=== PATIENT | female | born 1945 | race African-American/Black ===

== ENCOUNTER 2016-11-16 08:09 | Inpatient (IN) ==
[2016-11-16] MEDS ORDERED: TYLENOL ONE (08:24)
[2016-11-16] MEDS ORDERED: LOPRESSOR IV ONE (08:31)
[2016-11-16] MEDS ORDERED: TYLENOL PO ONE (08:38)
--- NOTE | 2016-11-16 09:24 | Diag Imaging Result Doc PS360 ---
EXAM: CHEST-2 VIEWS - 11/16/2016 HISTORY: fever TECHNIQUE: Chest two views COMPARISON: 10/20/2016 and 02/16/2016 FINDINGS: Heart size is normal. Inspiration is mildly shallow. The lungs appear clear. There is no pleural effusion or pneumothorax identified. IMPRESSION: Mildly shallow inspiration. No other evidence of acute disease. Electronically signed by Mateo Mcmahan 11/16/2016 9:22 AM
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
[2016-11-16 09:40] LABS: BILIRUBIN URINE NEGATIVE (NEGATIVE); BLOOD URINE 4+ (NEGATIVE); CLARITY CLEAR (CLEAR); COLOR YELLOW; GLUCOSE URINE NEGATIVE (NEGATIVE); LEUKOCYTES URINE 1+ (NEGATIVE); NITRITE URINE NEGATIVE (NEGATIVE); SP GRAVITY URINE 1.015; UROBILINOGEN URINE NORMAL
[2016-11-16 09:48] LABS: CALCIUM 9.5 mg/dL (8.8-10.2); POTASSIUM 4.3 mmol/L (3.5-5.1); TOTAL BILIRUBIN 0.7 mg/dL (0.20-1.00); TOTAL PROTEIN 8.8 g/dL (6.3-8.3)
--- NOTE | 2016-11-16 09:49 | EKG Report ---
Test Performed on : 11/16/2016 09:15:45 AM Test Reason : weakness Blood Pressure : / mmHG Vent. Rate : 111 BPM Atrial Rate : 111 BPM P-R Int : 130 ms QRS Dur : 064 ms QT Int : 328 ms P-R-T Axes : 083 083 080 degrees QTc Int : 446 ms Sinus tachycardia. Right atrial enlargement Borderline ECG When compared with ECG of 20-OCT-2016 16:04, No significant change was found Unconfirmed Result
[2016-11-16 09:50] LABS: URINE CULTURE PL NEEDED? YES; URINE EPITHELIAL CELLS >10 /HPF (<10); URINE RBC TNTC /HPF (<10); URINE WBC TNTC /HPF (<10)
[2016-11-16 09:51] LABS: URINE SOURCE CATH
[2016-11-16 10:34] LABS: BASO% 0.1 % (0.0-0.8); HEMATOCRIT 39.4 % (37.0-47.0); HEMOGLOBIN 12.9 g/dL (12.0-16.0); IMM GRAN# 0.04 X1000 (0.0-0.04); IMM GRAN% 0.3 % (0.0-0.5); LYMPH# 0.76 X1000 (1.2-3.4); LYMPH% 5.3 % (20.5-51.1); MANUAL DIFF NEEDED? YES; MCHC 32.7 g/dL (33-37); MCV 82.6 FL (81-99); MONO# 0.97 X1000 (0.11-0.59); MONO% 6.8 % (1.7-9.3); MPV 12.2 FL (7.4-10.4); NEUT% 87.5 % (42.2-75.2); PLT 195 X1000 (130-400); RBC 4.77 XMIL (4.2-5.4)
[2016-11-16 11:05] LABS: CK INDEX 0.8 (0.0-2.5); CK-MB 4.18 ng/mL (0.0-5.0)
[2016-11-16 11:07] LABS: LYMPHS 4 % (21-51); MONO 6 % (1-9)
[2016-11-16 11:20] LABS: INR 1.09 (0.86-1.15); PROTIME 14.4 Seconds (12.1-15.5)
[2016-11-16] MEDS ORDERED: LEVAQUIN 500 MG/D5W 500 MG/100 ML IVPB IV ONE (11:46)
[2016-11-16 12:28] LABS: PTT PL 25.1 Seconds (22.6-43.9)
[2016-11-16] MEDS ORDERED: LIBRIUM PO PRN (15:16)
[2016-11-16] MEDS: NS 1,000 ML IV SCH (16:36)
[2016-11-16] MEDS: ATIVAN IV PRN (18:42)
[2016-11-16] MEDS: CATAPRES PO PRN (19:30)
[2016-11-16] MEDS: KEPPRA PO SCH (22:18)
[2016-11-17] MEDS: NS 1,000 ML IV SCH ×3 (00:20→18:17)
[2016-11-17] MEDS: COZAAR PO SCH ×2 (00:20→09:28)
[2016-11-17] MEDS: NORVASC PO SCH (09:29)
[2016-11-17] MEDS: KEPPRA PO SCH ×2 (09:29→20:53)
[2016-11-17] MEDS: TUMS EXTRA STRENGTH PO PRN (14:21)
[2016-11-18] MEDS: ATIVAN IV PRN (02:13)
[2016-11-18] MEDS: NS 1,000 ML IV SCH ×2 (03:37→09:51)
[2016-11-18 07:05] LABS: MANUAL DIFF NEEDED? NO
[2016-11-18 07:21] LABS: BASO% 0.1 % (0.0-0.8); EOS# 0.05 X1000 (0.0-0.7); EOS% 0.4 % (0.0-10.0); HEMATOCRIT 33.4 % (37.0-47.0); HEMOGLOBIN 10.9 g/dL (12.0-16.0); IMM GRAN# 0.04 X1000 (0.0-0.04); IMM GRAN% 0.4 % (0.0-0.5); LYMPH# 1.67 X1000 (1.2-3.4); LYMPH% 14.9 % (20.5-51.1); MCH 27.5 PG (27-31); MCHC 32.6 g/dL (33-37); MCV 84.3 FL (81-99); MONO# 0.99 X1000 (0.11-0.59); MONO% 8.8 % (1.7-9.3); MPV 11.9 FL (7.4-10.4); NEUT% 75.4 % (42.2-75.2); PLT 137 X1000 (130-400); RBC 3.96 XMIL (4.2-5.4)
[2016-11-18 07:31] LABS: ALBUMIN 3.4 g/dL (3.5-5.0); CALCIUM 8.6 mg/dL (8.8-10.2); POTASSIUM 3.4 mmol/L (3.5-5.1); TOTAL BILIRUBIN 0.3 mg/dL (0.20-1.00)
[2016-11-18] MEDS: NORVASC PO SCH (09:43)
[2016-11-18] MEDS: KEPPRA PO SCH ×2 (09:43→20:07)
[2016-11-18] MEDS: COZAAR PO SCH (09:43)
[2016-11-19] MEDS: NS 1,000 ML IV SCH ×2 (00:19→06:29)
[2016-11-19 06:09] LABS: MANUAL DIFF NEEDED? NO
[2016-11-19 06:15] LABS: BASO% 0.1 % (0.0-0.8); EOS% 0.9 % (0.0-10.0); HEMATOCRIT 30.7 % (37.0-47.0); HEMOGLOBIN 9.9 g/dL (12.0-16.0); IMM GRAN# 0.05 X1000 (0.0-0.04); IMM GRAN% 0.5 % (0.0-0.5); LYMPH# 2.61 X1000 (1.2-3.4); MCH 27.3 PG (27-31); MCHC 32.2 g/dL (33-37); MCV 84.6 FL (81-99); MONO# 1.12 X1000 (0.11-0.59); MONO% 10.3 % (1.7-9.3); MPV 11.7 FL (7.4-10.4); NEUT% 64.2 % (42.2-75.2); PLT 157 X1000 (130-400); RBC 3.63 XMIL (4.2-5.4)
[2016-11-19 06:45] LABS: CALCIUM 8.3 mg/dL (8.8-10.2); POTASSIUM 3.4 mmol/L (3.5-5.1); TOTAL BILIRUBIN 0.4 mg/dL (0.20-1.00); TOTAL PROTEIN 6.6 g/dL (6.3-8.3)
[2016-11-19] MEDS ORDERED: LEVAQUIN 500 MG/D5W 500 MG/100 ML IVPB IV SCH (11:30)
[2016-11-19] MEDS: COZAAR PO SCH (17:34)
[2016-11-19] MEDS: NORVASC PO SCH (17:35)
[2016-11-19] MEDS: KEPPRA PO SCH (17:35)
[2016-11-20] MEDS: NS 1,000 ML IV SCH ×4 (02:40→18:34)
[2016-11-20] MEDS: ABILIFY PO SCH ×2 (02:40→08:47)
[2016-11-20] MEDS: M.V.I.-12 10 ML, FOLIC ACID 1 MG, MAGNESIUM SULFATE 1 GM, THIAMINE 100 MG in NS 1,000 ML IV SCH ×2 (02:42→21:02)
[2016-11-20] MEDS: KEPPRA PO SCH ×3 (02:42→21:00)
[2016-11-20 05:58] LABS: MANUAL DIFF NEEDED? NO
[2016-11-20 06:03] LABS: BASO% 0.1 % (0.0-0.8); EOS# 0.09 X1000 (0.0-0.7); HEMATOCRIT 26.5 % (37.0-47.0); HEMOGLOBIN 8.6 g/dL (12.0-16.0); IMM GRAN# 0.04 X1000 (0.0-0.04); IMM GRAN% 0.4 % (0.0-0.5); LYMPH# 1.47 X1000 (1.2-3.4); LYMPH% 16.2 % (20.5-51.1); MCH 27.2 PG (27-31); MCHC 32.5 g/dL (33-37); MCV 83.9 FL (81-99); MONO# 0.88 X1000 (0.11-0.59); MONO% 9.7 % (1.7-9.3); NEUT% 72.6 % (42.2-75.2); PLT 143 X1000 (130-400); RBC 3.16 XMIL (4.2-5.4)
[2016-11-20 06:41] LABS: AGAP 13; ALBUMIN 2.8 g/dL (3.5-5.0); ALKALINE PHOSPHATASE 64 U/L (32-104); BUN 20 mg/dL (8-22); CALCIUM 8.7 mg/dL (8.8-10.2); CHLORIDE 106 mmol/L (98-107); COSMO 285; GOT 18 U/L (10-30); GPT 14 U/L (10-36); SODIUM 141 mmol/L (136-145); TCO2 22 mmol/L (25-35); TOTAL PROTEIN 6.1 g/dL (6.3-8.3)
[2016-11-20] MEDS: COZAAR PO SCH (08:47)
[2016-11-20] MEDS: NORVASC PO SCH (08:50)
[2016-11-20] MEDS ORDERED: KLOR-CON PO ONE (15:37)
[2016-11-21] MEDS: ATIVAN IV PRN ×3 (00:28→21:50)
[2016-11-21] MEDS: M.V.I.-12 10 ML, FOLIC ACID 1 MG, MAGNESIUM SULFATE 1 GM, THIAMINE 100 MG in NS 1,000 ML IV SCH ×2 (00:29→21:50)
[2016-11-21] MEDS: NS 1,000 ML IV SCH (02:38)
[2016-11-21 05:50] LABS: MANUAL DIFF NEEDED? NO
[2016-11-21 05:57] LABS: BASO% 0.1 % (0.0-0.8); EOS# 0.14 X1000 (0.0-0.7); EOS% 1.3 % (0.0-10.0); HEMATOCRIT 28.4 % (37.0-47.0); HEMOGLOBIN 9.1 g/dL (12.0-16.0); IMM GRAN# 0.04 X1000 (0.0-0.04); IMM GRAN% 0.4 % (0.0-0.5); LYMPH# 1.21 X1000 (1.2-3.4); LYMPH% 11.4 % (20.5-51.1); MCH 27.1 PG (27-31); MCV 84.5 FL (81-99); MONO# 0.82 X1000 (0.11-0.59); MONO% 7.7 % (1.7-9.3); MPV 11.5 FL (7.4-10.4); NEUT% 79.1 % (42.2-75.2); PLT 154 X1000 (130-400); RBC 3.36 XMIL (4.2-5.4)
[2016-11-21 06:34] LABS: AGAP 13; ALBUMIN 3.1 g/dL (3.5-5.0); ALKALINE PHOSPHATASE 64 U/L (32-104); BUN 13 mg/dL (8-22); CHLORIDE 105 mmol/L (98-107); COSMO 280; GOT 17 U/L (10-30); GPT 13 U/L (10-36); POTASSIUM 3.4 mmol/L (3.5-5.1); SODIUM 140 mmol/L (136-145); TCO2 22 mmol/L (25-35); TOTAL PROTEIN 6.6 g/dL (6.3-8.3)
[2016-11-21] MEDS: KEPPRA PO SCH ×2 (10:30→21:50)
[2016-11-21] MEDS: NORVASC PO SCH (10:30)
[2016-11-21] MEDS: ABILIFY PO SCH (10:30)
[2016-11-21] MEDS: COZAAR PO SCH (10:30)
[2016-11-21] MEDS: LIBRIUM PO PRN (16:00)
[2016-11-22] MEDS: TUMS EXTRA STRENGTH PO PRN ×2 (00:02→17:14)
[2016-11-22] MEDS: LIBRIUM PO PRN ×2 (00:06→21:14)
[2016-11-22] MEDS: NS 1,000 ML IV SCH ×5 (00:09→16:22)
[2016-11-22] MEDS: M.V.I.-12 10 ML, FOLIC ACID 1 MG, MAGNESIUM SULFATE 1 GM, THIAMINE 100 MG in NS 1,000 ML IV SCH ×2 (07:17→09:14)
[2016-11-22] MEDS: COZAAR PO SCH (09:15)
[2016-11-22] MEDS: KEPPRA PO SCH ×2 (09:15→21:14)
[2016-11-22] MEDS: ABILIFY PO SCH (09:15)
[2016-11-22] MEDS: NORVASC PO SCH (09:17)
[2016-11-22 19:34] LABS: MANUAL DIFF NEEDED? NO
[2016-11-22 19:49] LABS: BASO% 0.2 % (0.0-0.8); EOS# 0.07 X1000 (0.0-0.7); EOS% 0.7 % (0.0-10.0); HEMATOCRIT 26.4 % (37.0-47.0); HEMOGLOBIN 8.5 g/dL (12.0-16.0); IMM GRAN# 0.03 X1000 (0.0-0.04); IMM GRAN% 0.3 % (0.0-0.5); LYMPH# 1.49 X1000 (1.2-3.4); LYMPH% 15.7 % (20.5-51.1); MCH 27.4 PG (27-31); MCHC 32.2 g/dL (33-37); MCV 85.2 FL (81-99); MONO# 0.93 X1000 (0.11-0.59); MONO% 9.8 % (1.7-9.3); MPV 11.2 FL (7.4-10.4); NEUT% 73.3 % (42.2-75.2); PLT 167 X1000 (130-400)
[2016-11-22 20:07] LABS: ALBUMIN 3.1 g/dL (3.5-5.0); CALCIUM 9.3 mg/dL (8.8-10.2); POTASSIUM 3.7 mmol/L (3.5-5.1); TOTAL BILIRUBIN 0.2 mg/dL (0.20-1.00)
[2016-11-23] MEDS: NS 1,000 ML IV SCH (03:54)
[2016-11-23] MEDS: TUMS EXTRA STRENGTH PO PRN (06:24)
[2016-11-23] MEDS: COZAAR PO SCH (08:41)
[2016-11-23] MEDS: NORVASC PO SCH (08:41)
[2016-11-23] MEDS: CATAPRES PO PRN (08:41)
[2016-11-23] MEDS: KEPPRA PO SCH (08:41)
[2016-11-23] MEDS: ABILIFY PO SCH (08:41)
[2016-11-23 11:39] VITALS: BP 119/84
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
== END 2016-11-23 17:40 | disposition home health service (06) ==
LOC: P.MEDSURG 08:09 → P.ED 08:09 → OBSVTOIN 12:19 → P.MEDSURG 11-19 16:06
PROVIDERS: ADMIT Internal Medicine; ATTEND Internal Medicine